=== PATIENT | male | born 1985 | race Caucasian/White ===

== ENCOUNTER 2019-04-13 07:25 | Emergency (ER) | payer OTHER ==
[~2019-04-13] VITALS: Ht 200.7 cm; Wt 81.0 kg
[2019-04-13 07:27] VITALS: BP 135/74
== END 2019-04-13 08:34 | disposition home or self-care (01) ==
LOC: ED 08:11
DX: A60.01 Herpesviral infection of penis (principal)
CPT/HCPCS: 87491; 87591; 99283